=== PATIENT | female | born 1935 | race Two or more races ===

== ENCOUNTER 2023-09-16 05:56 | Inpatient (IN) | payer MEDICARE, MEDICAID ==
[~2023-09-16] VITALS: Ht 154.9 cm; Wt 81.9 kg
[2023-09-16 06:54] LABS: Eosinophils # (auto) 0.2 10 ^3/uL (0-0.8); Hemoglobin 13.5 g/dL (12.2-16.2); Lymphocytes # (auto) 2.3 10 ^3/uL (0.4-5.4); Neutrophils # (auto) 6.6 10 ^3/uL (1.6-8.6)
[2023-09-16 06:58] LABS: Basophils # (auto) 0.1 10 ^3/uL (0-0.2); Basophils % (auto) 0.6 % (0.0-2.0); Eosinophils % (auto) 2.5 % (0.0-7.0); Hematocrit 41.6 % (36.0-46.0); Lymphocytes % (auto) 23.6 % (10.0-50.0); Mean Corpuscular Hgb Conc. 32.5 g/dL (32.0-36.0); Mean Corpuscular Volume 83.2 fL (80.0-100.0); Monocytes # (auto) 0.5 10 ^3/uL (0-1.3); Monocytes % (auto) 5.6 % (0.0-12.0); Neutrophils % (auto) 67.7 % (37.0-80.0); Nucleated Red Blood Cells % 0.1 %; Red Cell Distribution Width 16.7 % (11.8-14.3); White Blood Cell 9.7 10^3/uL (4.4-10.8)
[2023-09-16 07:08] LABS: Alanine Aminotransferase 11 U/L (7-40); Albumin 3.9 g/dL (3.2-4.8); Alkaline Phosphatase 69 U/L (46-116); Anion Gap 5 (5-15); Aspartate Aminotransferase 9 U/L (13-40); BUN/Creatinine Ratio 27.5 (10.0-20.0); Bilirubin, Total 0.5 mg/dL (0.2-1.0); Blood Urea Nitrogen 22 mg/dL (9-23); Calcium 9.1 mg/dL (8.7-10.4); Carbon Dioxide 29 mmol/L (20-30); Chloride 106 mmol/L (98-107); Glucose 152 mg/dL (74-106); Potassium 4.3 mmol/L (3.5-5.1); Sodium 140 mmol/L (136-145); Total Protein 6.1 g/dL (5.7-8.2)
[2023-09-16 07:30] VITALS: PULSE 53; RESP 15; O2SAT 91
[2023-09-16 07:32] LABS: INR 1.14 (0.9-1.15); Partial Thromboplastin Time 33.5 SEC (24.5-34.5); Prothrombin Time 11.9 sec (9.3-11.8)
[2023-09-16] MEDS ORDERED: FUROSEMIDE 40 MG/4 ML VIAL IV ONE (10:30)
[2023-09-16] MEDS ORDERED: BENA40TA70 PO (11:00)
[2023-09-16] MEDS ORDERED: ALBUTEROL MEDNEB 2.5 mg/3ml NEB NEB PRN (11:00)
[2023-09-16] MEDS ORDERED: ASPI-628 PO (11:00)
[2023-09-16] MEDS ORDERED: MORPHINE SULFATE INJ 2 MG/ml SYRG IV PRN (11:00)
[2023-09-16] MEDS ORDERED: SIMV20TA20 PO (11:00)
[2023-09-16] MEDS ORDERED: CLOP75TA70 PO (11:00)
[2023-09-16] MEDS ORDERED: FOLI-119 PO (11:00)
[2023-09-16] MEDS ORDERED: GAB100C PO (11:00)
[2023-09-16] MEDS ORDERED: POTA-264 (11:00)
[2023-09-16] MEDS ORDERED: NITROGLYCERIN 0.4 MG SL TAB SL PRN (11:00)
[2023-09-16] MEDS ORDERED: FUR20T PO (11:00)
[2023-09-16] MEDS ORDERED: AMLO1TAB22 PO (11:00)
[2023-09-16] MEDS ORDERED: DEXTROSE (50%) 50ML SYRG IV PRN (11:00)
[2023-09-16 11:41] VITALS: BP 114/53; PULSE 60; RESP 20; TEMP 98.1
[2023-09-16 12:16] LABS: Triglycerides 97 mg/dL (< 150)
[2023-09-16 12:17] LABS: LDL Cholesterol 30 mg/dL (< 100)
[2023-09-16 12:18] LABS: Cholesterol 83 mg/dL (< 200); HDL Cholesterol 39 mg/dL (40-59)
[2023-09-16] MEDS: InsuLIN REG 1unit/0.01ml Soln (100units/ml) SC SCH ×3 (12:18→21:05)
[2023-09-16] MEDS: ACCU-CHEK COMFORT CURVE STRIP VI SCH ×3 (12:18→21:05)
[2023-09-16] MEDS ORDERED: ATROPINE SULF 1 MG/10ml SYR IV ONE (12:45)
[2023-09-16] MEDS ORDERED: ATROPINE SULF 1 MG/10ml SYR IV PRN (13:45)
[2023-09-16] MEDS ORDERED: IOHEXOL 350 MG/ML 100ML IJ ONE (14:28)
[2023-09-16] MEDS: GABAPENTIN 100 MG CAP PO SCH ×2 (16:17→21:04)
[2023-09-16 16:32] LABS: Urine Bacteria MANY /hpf (None Seen); Urine Blood Negative /uL (Negative); Urine Clarity Clear (Clear); Urine Color Yellow (Yellow); Urine Hyaline Cast MANY /lpf (0 - 2); Urine Mucus FEW (None Seen); Urine Protein, UAD 1+ (Negative); Urine Specific Gravity 1.024 (1.001-1.035); Urine Urobilinogen Normal (Negative); Urine WBC 1 /hpf (0 - 5); Urine pH 5.5 (5.0-8.0)
[2023-09-16 19:22] VITALS: PULSE 77; RESP 26; O2SAT 93
[2023-09-17 06:36] LABS: Alanine Aminotransferase < 9 U/L (7-40); Albumin 4.2 g/dL (3.2-4.8); Alkaline Phosphatase 69 U/L (46-116); Anion Gap 6 (5-15); Aspartate Aminotransferase 11 U/L (13-40); BUN/Creatinine Ratio 19.5 (10.0-20.0); Basophils # (auto) 0 10 ^3/uL (0-0.2); Basophils % (auto) 0.4 % (0.0-2.0); Bilirubin, Total 0.6 mg/dL (0.2-1.0); Blood Urea Nitrogen 15 mg/dL (9-23); Calcium 9.1 mg/dL (8.7-10.4); Carbon Dioxide 30 mmol/L (20-30); Chloride 106 mmol/L (98-107); Glucose 151 mg/dL (74-106); Hemoglobin 13.8 g/dL (12.2-16.2); Lymphocytes # (auto) 1.3 10 ^3/uL (0.4-5.4); Potassium 4.5 mmol/L (3.5-5.1); Sodium 142 mmol/L (136-145); Total Protein 6.8 g/dL (5.7-8.2)
[2023-09-17 06:40] LABS: Eosinophils # (auto) 0.2 10 ^3/uL (0-0.8); Eosinophils % (auto) 1.5 % (0.0-7.0); Lymphocytes % (auto) 12.2 % (10.0-50.0); Mean Corpuscular Hemoglobin 26.6 pg (28.0-32.0); Mean Corpuscular Hgb Conc. 32.2 g/dL (32.0-36.0); Mean Corpuscular Volume 82.6 fL (80.0-100.0); Monocytes # (auto) 0.7 10 ^3/uL (0-1.3); Monocytes % (auto) 6.6 % (0.0-12.0); Neutrophils # (auto) 8.2 10 ^3/uL (1.6-8.6); Neutrophils % (auto) 79.3 % (37.0-80.0); White Blood Cell 10.3 10^3/uL (4.4-10.8)
[2023-09-17] MEDS: ACCU-CHEK COMFORT CURVE STRIP VI SCH ×4 (07:01→22:00)
[2023-09-17] MEDS: GABAPENTIN 100 MG CAP PO SCH ×3 (07:03→23:25)
[2023-09-17] MEDS: InsuLIN REG 1unit/0.01ml Soln (100units/ml) SC SCH ×4 (07:04→22:00)
[2023-09-17] MEDS: DOPamine 1600MCG/ML D5W 250 ML IV SCH ×2 (08:38→13:00)
[2023-09-17 08:40] VITALS: PULSE 52; RESP 18; O2SAT 93
[2023-09-17] MEDS ORDERED: CLOPIDOGREL BISULFATE 75 MG TAB PO SCH (10:00)
[2023-09-17] MEDS ORDERED: amLODIPine BESYLATE 5 MG TAB PO SCH (10:00)
[2023-09-17] MEDS ORDERED: FUROSEMIDE 20 MG/2 ML VIAL IV SCH (10:00)
[2023-09-17] MEDS: ENOXAPARIN SOD 40 MG/0.4 ML SYRINGE SC SCH (10:00)
[2023-09-17] MEDS: ASPirin-EC 81 mg tab PO SCH (10:00)
[2023-09-17] MEDS: FOLIC ACID 1 MG TAB PO SCH (11:27)
[2023-09-17] MEDS ORDERED: ATROPINE SULF 1 MG/10ml SYR IV ONE (15:15)
[2023-09-17] MEDS ORDERED: FUROSEMIDE 40 MG/4 ML VIAL IV SCH (18:00)
[2023-09-17 19:29] VITALS: BP 127/49; PULSE 43; RESP 20; TEMP 98.6; O2SAT 95
[2023-09-17 20:00] VITALS: PULSE 44
[2023-09-17 22:00] VITALS: BP 150/57; PULSE 37; RESP 16; TEMP 97.3; O2SAT 94
[2023-09-17] MEDS: FUROSEMIDE 40 MG/4 ML VIAL IV SCH (23:22)
[2023-09-17] MEDS: LISINOPRIL 5 MG TAB PO SCH (23:23)
[2023-09-18] VITALS (9 sets, daily range): BP systolic 128–145; BP diastolic 42–61; PULSE 45–65; RESP 14–20; TEMP 97.3–98.1; O2SAT 93–100
[2023-09-18] MEDS: InsuLIN REG 1unit/0.01ml Soln (100units/ml) SC SCH ×3 (06:08→17:14)
[2023-09-18] MEDS: GABAPENTIN 100 MG CAP PO SCH ×3 (06:09→22:00)
[2023-09-18] MEDS: FUROSEMIDE 40 MG/4 ML VIAL IV SCH ×2 (06:09→18:00)
[2023-09-18] MEDS: ACETAMINOPHEN 325 MG TAB PO PRN ×2 (06:18→17:11)
[2023-09-18 06:30] LABS: Basophils # (auto) 0 10 ^3/uL (0-0.2); Basophils % (auto) 0.4 % (0.0-2.0); Eosinophils # (auto) 0.1 10 ^3/uL (0-0.8); Hematocrit 41.3 % (36.0-46.0); Hemoglobin 13.3 g/dL (12.2-16.2); Lymphocytes # (auto) 1.3 10 ^3/uL (0.4-5.4); Mean Corpuscular Hgb Conc. 32.2 g/dL (32.0-36.0); Monocytes # (auto) 0.5 10 ^3/uL (0-1.3); Monocytes % (auto) 6.4 % (0.0-12.0); Neutrophils # (auto) 6.4 10 ^3/uL (1.6-8.6); Neutrophils % (auto) 76.2 % (37.0-80.0); Red Blood Cells 4.91 10^6/uL (4.0-5.20); Red Cell Distribution Width 17.1 % (11.8-14.3); White Blood Cell 8.4 10^3/uL (4.4-10.8)
[2023-09-18 06:39] LABS: Anion Gap 7 (5-15); Carbon Dioxide 31 mmol/L (20-30); Chloride 104 mmol/L (98-107); Sodium 142 mmol/L (136-145)
[2023-09-18 06:40] LABS: Calcium 9.1 mg/dL (8.5-10.1)
[2023-09-18 06:45] LABS: BUN/Creatinine Ratio 16.4 (10.0-20.0); Blood Urea Nitrogen 12 mg/dL (9-23); Glucose 203 mg/dL (74-106)
[2023-09-18] MEDS: ACCU-CHEK COMFORT CURVE STRIP VI SCH ×3 (07:00→17:13)
[2023-09-18] MEDS ORDERED: LISINOPRIL 5 MG TAB PO SCH (10:00)
[2023-09-18] MEDS: ASPirin-EC 81 mg tab PO SCH (10:19)
[2023-09-18] MEDS: LISINOPRIL 5 MG TAB PO SCH (10:20)
[2023-09-18] MEDS: ENOXAPARIN SOD 40 MG/0.4 ML SYRINGE SC SCH (10:20)
[2023-09-18] MEDS: FOLIC ACID 1 MG TAB PO SCH (10:20)
[2023-09-18] MEDS: EMPAGLIFLOZIN 10 MG TAB PO SCH (10:43)
[2023-09-18] MEDS: DOPamine 1600MCG/ML D5W 250 ML IV SCH (13:00)
[2023-09-18] MEDS ORDERED: ATROPINE SULF 1 MG/10ml SYR IV ONE (14:30)
[2023-09-19] VITALS (10 sets, daily range): BP systolic 121–160; BP diastolic 43–81; PULSE 31–94; RESP 13–20; TEMP 97.6–98.4; O2SAT 92–95
[2023-09-19] MEDS: InsuLIN REG 1unit/0.01ml Soln (100units/ml) SC SCH ×5 (00:38→21:27)
[2023-09-19] MEDS: GABAPENTIN 100 MG CAP PO SCH ×3 (06:00→21:13)
[2023-09-19] MEDS: ACCU-CHEK COMFORT CURVE STRIP VI SCH ×5 (06:22→22:29)
[2023-09-19 06:25] LABS: Basophils # (auto) 0 10 ^3/uL (0-0.2); Eosinophils # (auto) 0.2 10 ^3/uL (0-0.8); Hematocrit 39.3 % (36.0-46.0); Hemoglobin 12.6 g/dL (12.2-16.2); Monocytes # (auto) 0.8 10 ^3/uL (0-1.3)
[2023-09-19 06:28] LABS: Basophils % (auto) 0.5 % (0.0-2.0); Eosinophils % (auto) 2.4 % (0.0-7.0); Lymphocytes # (auto) 1.8 10 ^3/uL (0.4-5.4); Lymphocytes % (auto) 17.6 % (10.0-50.0); Mean Corpuscular Hemoglobin 26.8 pg (28.0-32.0); Mean Corpuscular Hgb Conc. 32.1 g/dL (32.0-36.0); Mean Corpuscular Volume 83.3 fL (80.0-100.0); Monocytes % (auto) 7.8 % (0.0-12.0); Neutrophils # (auto) 7.2 10 ^3/uL (1.6-8.6); Neutrophils % (auto) 71.7 % (37.0-80.0); Red Blood Cells 4.72 10^6/uL (4.0-5.20); Red Cell Distribution Width 16.9 % (11.8-14.3); White Blood Cell 10.1 10^3/uL (4.4-10.8)
[2023-09-19 06:37] LABS: Albumin 3.7 g/dL (3.2-4.8); Alkaline Phosphatase 64 U/L (46-116); Anion Gap 2 (5-15); Aspartate Aminotransferase 11 U/L (13-40); BUN/Creatinine Ratio 19.8 (10.0-20.0); Bilirubin, Total 0.4 mg/dL (0.2-1.0); Blood Urea Nitrogen 18 mg/dL (9-23); Calcium 8.9 mg/dL (8.5-10.1); Carbon Dioxide 33 mmol/L (20-30); Chloride 106 mmol/L (98-107); Glucose 138 mg/dL (74-106); Sodium 141 mmol/L (136-145); Total Protein 6.1 g/dL (5.7-8.2)
[2023-09-19] MEDS: FUROSEMIDE 40 MG/4 ML VIAL IV SCH ×2 (06:48→18:26)
[2023-09-19 06:50] LABS: Alanine Aminotransferase < 9 U/L (7-40)
[2023-09-19] MEDS: EMPAGLIFLOZIN 10 MG TAB PO SCH (09:26)
[2023-09-19] MEDS: LISINOPRIL 5 MG TAB PO SCH (09:27)
[2023-09-19] MEDS: FOLIC ACID 1 MG TAB PO SCH (09:28)
[2023-09-19] MEDS: ENOXAPARIN SOD 40 MG/0.4 ML SYRINGE SC SCH (09:28)
[2023-09-19] MEDS: ASPirin-EC 81 mg tab PO SCH (09:28)
[2023-09-19] MEDS: DOPamine 1600MCG/ML D5W 250 ML IV SCH (13:00)
[2023-09-19] MEDS ORDERED: HEPARIN SODIUM (PORCINE) 5000 UNITS/ML 1ML VIAL ONE (13:04)
[2023-09-19] MEDS ORDERED: VERAPAMIL 2.5MG/ML INJ 2ML VIAL IV ONE (13:04)
[2023-09-19] MEDS ORDERED: fentaNYL CITRATE 100 MCG/2 ML VL ONE (13:04)
[2023-09-19] MEDS ORDERED: LIDOCAINE 2%HCL (LOCAL ANESTH.) INJ 20ML MDV ONE (13:05)
[2023-09-19] MEDS ORDERED: IODIXANOL 320MG/ML 100ML BTL IV ONE (13:05)
[2023-09-19] MEDS ORDERED: MIDAZOLAM HCL 2MG/2ML 2ml VIAL (1mg/ml) ONE (13:05)
[2023-09-19] MEDS ORDERED: ANGIOMAX 250 MG VIAL IV ONE (13:17)
[2023-09-19] MEDS: ACETAMINOPHEN 325 MG TAB PO PRN (21:14)
[2023-09-20] VITALS (7 sets, daily range): BP systolic 129–163; BP diastolic 44–68; PULSE 68–78; RESP 18–20; TEMP 97.8–98.5; O2SAT 91–96
[2023-09-20] MEDS: EMPAGLIFLOZIN 10 MG TAB PO SCH (05:27)
[2023-09-20] MEDS: GABAPENTIN 100 MG CAP PO SCH ×3 (05:28→21:05)
[2023-09-20] MEDS: FUROSEMIDE 40 MG/4 ML VIAL IV SCH (05:31)
[2023-09-20] MEDS: ACCU-CHEK COMFORT CURVE STRIP VI SCH ×4 (06:06→22:00)
[2023-09-20] MEDS: InsuLIN REG 1unit/0.01ml Soln (100units/ml) SC SCH ×4 (06:12→21:10)
[2023-09-20 06:52] LABS: Basophils # (auto) 0 10 ^3/uL (0-0.2); Basophils % (auto) 0.4 % (0.0-2.0); Eosinophils # (auto) 0.1 10 ^3/uL (0-0.8); Eosinophils % (auto) 1.1 % (0.0-7.0); Hematocrit 42.4 % (36.0-46.0); Hemoglobin 13.4 g/dL (12.2-16.2); Lymphocytes # (auto) 1.3 10 ^3/uL (0.4-5.4); Lymphocytes % (auto) 15.4 % (10.0-50.0); Mean Corpuscular Hemoglobin 26.7 pg (28.0-32.0); Mean Corpuscular Hgb Conc. 31.6 g/dL (32.0-36.0); Mean Corpuscular Volume 84.4 fL (80.0-100.0); Monocytes # (auto) 0.8 10 ^3/uL (0-1.3); Monocytes % (auto) 8.9 % (0.0-12.0); Neutrophils # (auto) 6.3 10 ^3/uL (1.6-8.6); Neutrophils % (auto) 74.2 % (37.0-80.0); Nucleated Red Blood Cells % 0.2 %; Red Blood Cells 5.02 10^6/uL (4.0-5.20); Red Cell Distribution Width 16.9 % (11.8-14.3); White Blood Cell 8.4 10^3/uL (4.4-10.8)
[2023-09-20 07:12] LABS: Anion Gap 10 (5-15); Calcium 9.3 mg/dL (8.7-10.4); Carbon Dioxide 31 mmol/L (20-30); Chloride 103 mmol/L (98-107); Potassium 3.6 mmol/L (3.5-5.1); Sodium 144 mmol/L (136-145)
[2023-09-20 07:18] LABS: BUN/Creatinine Ratio 24.1 (10.0-20.0); Blood Urea Nitrogen 20 mg/dL (9-23); Glucose 127 mg/dL (74-106)
[2023-09-20] MEDS: ASPirin-EC 81 mg tab PO SCH (11:11)
[2023-09-20] MEDS: FOLIC ACID 1 MG TAB PO SCH (11:11)
[2023-09-20] MEDS: LISINOPRIL 5 MG TAB PO SCH (11:15)
[2023-09-20] MEDS: ENOXAPARIN SOD 40 MG/0.4 ML SYRINGE SC SCH (11:16)
[2023-09-20] MEDS ORDERED: POTASSIUM EFFERVESENT TAB 25 MEQ PO ONE (11:45)
[2023-09-20] MEDS: BUMETANIDE 2.5mg/10ml (0.25 mg/ml) INJ IV SCH (18:20)
[2023-09-20] MEDS: ATORVASTATIN 20 MG TAB PO SCH (21:05)
[2023-09-21] VITALS (8 sets, daily range): BP systolic 127–150; BP diastolic 47–85; PULSE 68–78; RESP 18–20; TEMP 97.6–98.9; O2SAT 90–94
[2023-09-21 05:48] LABS: Anion Gap 8 (5-15); Carbon Dioxide 33 mmol/L (20-30); Chloride 103 mmol/L (98-107); Potassium 4.1 mmol/L (3.5-5.1); Sodium 144 mmol/L (136-145)
[2023-09-21 05:50] LABS: Calcium 9.1 mg/dL (8.7-10.4)
[2023-09-21] MEDS: BUMETANIDE 2.5mg/10ml (0.25 mg/ml) INJ IV SCH ×2 (05:50→18:23)
[2023-09-21] MEDS: GABAPENTIN 100 MG CAP PO SCH ×3 (05:51→22:35)
[2023-09-21 05:54] LABS: BUN/Creatinine Ratio 30.8 (10.0-20.0); Blood Urea Nitrogen 20 mg/dL (9-23); Glucose 140 mg/dL (74-106)
[2023-09-21] MEDS: InsuLIN REG 1unit/0.01ml Soln (100units/ml) SC SCH ×4 (06:14→22:42)
[2023-09-21] MEDS: ACCU-CHEK COMFORT CURVE STRIP VI SCH ×4 (06:31→22:37)
[2023-09-21] MEDS: EMPAGLIFLOZIN 10 MG TAB PO SCH (06:31)
[2023-09-21 07:20] LABS: Basophils # (auto) 0 10 ^3/uL (0-0.2); Eosinophils # (auto) 0.2 10 ^3/uL (0-0.8); Lymphocytes # (auto) 1.4 10 ^3/uL (0.4-5.4)
[2023-09-21 07:23] LABS: Basophils % (auto) 0.5 % (0.0-2.0); Eosinophils % (auto) 2.7 % (0.0-7.0); Hematocrit 41.3 % (36.0-46.0); Hemoglobin 13.2 g/dL (12.2-16.2); Lymphocytes % (auto) 19.3 % (10.0-50.0); Mean Corpuscular Hemoglobin 26.6 pg (28.0-32.0); Mean Corpuscular Hgb Conc. 31.9 g/dL (32.0-36.0); Mean Corpuscular Volume 83.3 fL (80.0-100.0); Monocytes # (auto) 0.6 10 ^3/uL (0-1.3); Monocytes % (auto) 7.9 % (0.0-12.0); Neutrophils % (auto) 69.6 % (37.0-80.0); Nucleated Red Blood Cells % 0.1 %; Red Blood Cells 4.96 10^6/uL (4.0-5.20); White Blood Cell 7.1 10^3/uL (4.4-10.8)
[2023-09-21] MEDS: ASPirin-EC 81 mg tab PO SCH (08:58)
[2023-09-21] MEDS: SACUBITRIL-VALSARTAN 24mg/26mg TAB PO SCH ×2 (08:58→22:35)
[2023-09-21] MEDS: FOLIC ACID 1 MG TAB PO SCH (08:58)
[2023-09-21] MEDS: ENOXAPARIN SOD 40 MG/0.4 ML SYRINGE SC SCH (08:59)
[2023-09-21 14:25] LABS: Base Excess 8.9 mmol/L (-2.0-2.0)
[2023-09-21] MEDS: ATORVASTATIN 20 MG TAB PO SCH (22:35)
[2023-09-22] VITALS (7 sets, daily range): BP systolic 123–155; BP diastolic 47–58; PULSE 68–76; RESP 16–20; TEMP 97.4–98.4; O2SAT 91–97
[2023-09-22] MEDS: BUMETANIDE 2.5mg/10ml (0.25 mg/ml) INJ IV SCH ×2 (06:33→17:46)
[2023-09-22] MEDS: GABAPENTIN 100 MG CAP PO SCH ×3 (06:33→21:55)
[2023-09-22] MEDS: ACCU-CHEK COMFORT CURVE STRIP VI SCH ×4 (06:33→21:56)
[2023-09-22] MEDS: EMPAGLIFLOZIN 10 MG TAB PO SCH (06:33)
[2023-09-22] MEDS: InsuLIN REG 1unit/0.01ml Soln (100units/ml) SC SCH ×4 (06:43→22:02)
[2023-09-22] MEDS: FOLIC ACID 1 MG TAB PO SCH (09:21)
[2023-09-22] MEDS: ENOXAPARIN SOD 40 MG/0.4 ML SYRINGE SC SCH (09:21)
[2023-09-22] MEDS: SACUBITRIL-VALSARTAN 24mg/26mg TAB PO SCH ×2 (09:21→21:54)
[2023-09-22] MEDS: ASPirin-EC 81 mg tab PO SCH (09:22)
[2023-09-22 11:25] LABS: Base Excess 6.9 mmol/L (-2.0-2.0)
[2023-09-22] MEDS: ACETAMINOPHEN 325 MG TAB PO PRN (20:08)
[2023-09-22] MEDS: ATORVASTATIN 20 MG TAB PO SCH (21:54)
[2023-09-23 05:00] VITALS: BP 131/46; PULSE 60; RESP 16; TEMP 97.5; O2SAT 92
[2023-09-23] MEDS: EMPAGLIFLOZIN 10 MG TAB PO SCH (06:43)
[2023-09-23] MEDS: GABAPENTIN 100 MG CAP PO SCH ×3 (06:44→22:10)
[2023-09-23] MEDS: InsuLIN REG 1unit/0.01ml Soln (100units/ml) SC SCH ×4 (06:48→22:18)
[2023-09-23] MEDS: BUMETANIDE 2.5mg/10ml (0.25 mg/ml) INJ IV SCH ×2 (06:50→17:38)
[2023-09-23 07:20] LABS: Chloride 101 mmol/L (98-107); Sodium 142 mmol/L (136-145)
[2023-09-23 07:21] LABS: Anion Gap 8 (5-15); Calcium 9.7 mg/dL (8.5-10.1); Carbon Dioxide 33 mmol/L (20-30)
[2023-09-23 07:26] LABS: Blood Urea Nitrogen 18 mg/dL (9-23); Glucose 169 mg/dL (74-106)
[2023-09-23] MEDS: ACCU-CHEK COMFORT CURVE STRIP VI SCH ×4 (07:45→22:14)
[2023-09-23 08:00] VITALS: BP 119/50; PULSE 70; PULSE 76; RESP 20; TEMP 98.4; O2SAT 95
[2023-09-23] MEDS: SACUBITRIL-VALSARTAN 24mg/26mg TAB PO SCH ×2 (09:17→22:14)
[2023-09-23] MEDS: FOLIC ACID 1 MG TAB PO SCH (09:17)
[2023-09-23] MEDS: ASPirin-EC 81 mg tab PO SCH (09:17)
[2023-09-23] MEDS: ENOXAPARIN SOD 40 MG/0.4 ML SYRINGE SC SCH (09:17)
[2023-09-23] MEDS ORDERED: cefTRIAXone 1GM/50ML D5W 50 ML IV ONE (12:00)
[2023-09-23 12:48] VITALS: BP 148/53; PULSE 69; RESP 22; TEMP 98.2; O2SAT 91
[2023-09-23 13:14] LABS: Urine Bacteria FEW /hpf (None Seen); Urine Blood 1+ /uL (Negative); Urine Budding Yeast FEW /hpf (None Seen); Urine Clarity HAZY (Clear); Urine Color Colorless (Yellow); Urine Mucus FEW (None Seen); Urine Protein, UAD 1+ (Negative); Urine Specific Gravity 1.026 (1.001-1.035); Urine Sperm PRESENT /hpf (None Seen); Urine Urobilinogen Normal (Negative); Urine WBC 115 /hpf (0 - 5); Urine WBC Clumps PRESENT /hpf (None Seen)
[2023-09-23 17:00] VITALS: BP 130/40; PULSE 62; RESP 22; TEMP 98.6; O2SAT 90
[2023-09-23 20:00] VITALS: PULSE 79
[2023-09-23 22:00] VITALS: BP 131/53; PULSE 74; RESP 19; TEMP 97.5; O2SAT 93
[2023-09-23] MEDS: ATORVASTATIN 20 MG TAB PO SCH (22:10)
[2023-09-24 05:00] VITALS: BP 129/61; PULSE 66; RESP 18; TEMP 98; O2SAT 90
[2023-09-24] MEDS: EMPAGLIFLOZIN 10 MG TAB PO SCH (06:19)
[2023-09-24] MEDS: GABAPENTIN 100 MG CAP PO SCH ×2 (06:19→15:17)
[2023-09-24] MEDS: ACCU-CHEK COMFORT CURVE STRIP VI SCH ×2 (06:21→11:45)
[2023-09-24] MEDS: BUMETANIDE 2.5mg/10ml (0.25 mg/ml) INJ IV SCH (06:26)
[2023-09-24] MEDS: InsuLIN REG 1unit/0.01ml Soln (100units/ml) SC SCH ×2 (06:34→11:53)
[2023-09-24 08:00] VITALS: PULSE 81
[2023-09-24 09:00] VITALS: BP 132/48; PULSE 58; RESP 16; TEMP 97.5; O2SAT 95
[2023-09-24] MEDS ORDERED: cefTRIAXone 1GM/50ML D5W 50 ML IV SCH (09:00)
[2023-09-24] MEDS: SACUBITRIL-VALSARTAN 24mg/26mg TAB PO SCH (09:15)
[2023-09-24] MEDS: FOLIC ACID 1 MG TAB PO SCH (09:15)
[2023-09-24] MEDS: ENOXAPARIN SOD 40 MG/0.4 ML SYRINGE SC SCH (09:15)
[2023-09-24] MEDS: ASPirin-EC 81 mg tab PO SCH (09:15)
[2023-09-24] MEDS ORDERED: CEPH250C PO (11:53)
[2023-09-24] MEDS ORDERED: EMPA1TAB PO (11:53)
[2023-09-24] MEDS ORDERED: FURO1TAB33 PO (11:53)
[2023-09-24] MEDS ORDERED: SACU1TAB PO (11:53)
[2023-09-24 12:06] LABS: Base Excess 7.9 mmol/L (-2.0-2.0)
[2023-09-24 13:00] VITALS: BP 152/68; PULSE 63; RESP 12; TEMP 98.3; O2SAT 92
[2023-09-24 17:14] VITALS: BP 139/65; PULSE 74; RESP 14; TEMP 97.5; O2SAT 95
== END 2023-09-24 18:15 | disposition home or self-care (01) | DRG 286 ==
LOC: EDBD 05:56 → ER 05:56 → TELE-WESTW 10:59 → TELE 10:59 → TELE-WESTW 09-17 18:52
PROVIDERS: ADMIT Internal Medicine; ATTEND Student in an Organized Health Care Education/Training Program
PROC: 4A023N7 Measurement of Cardiac Sampling and Pressure, Left Heart, Percutaneous Approach (ICD-10-PCS; principal; 2023-09-19)
PROC: B211YZZ Fluoroscopy of Multiple Coronary Arteries using Other Contrast (ICD-10-PCS; 2023-09-19)
PROC: B215YZZ Fluoroscopy of Left Heart using Other Contrast (ICD-10-PCS; 2023-09-19)
DX: I11.0 Hypertensive heart disease with heart failure (principal); I50.23 Acute on chronic systolic (congestive) heart failure; J96.01 Acute respiratory failure with hypoxia; N39.0 Urinary tract infection, site not specified; J91.8 Pleural effusion in other conditions classified elsewhere; I42.8 Other cardiomyopathies; R00.1 Bradycardia, unspecified; I25.5 Ischemic cardiomyopathy; I27.20 Pulmonary hypertension, unspecified; E66.01 Morbid (severe) obesity due to excess calories; E11.51 Type 2 diabetes mellitus with diabetic peripheral angiopathy without gangrene; E78.5 Hyperlipidemia, unspecified; R07.89 Other chest pain; Z68.35 Body mass index [BMI] 35.0-35.9, adult; Z79.899 Other long term (current) drug therapy; Z71.3 Dietary counseling and surveillance; Z79.4 Long term (current) use of insulin
CPT/HCPCS: 36415; 36600; 71045; 71275; 80048; 80053; 80061; 81001; 82805; 82962; 83036; 83735; 83880; 84443; 84484; 85025; 85379; 85610; 85730; 86850; 86900; 86901; 87086; 93005; 93306; 93458; 93970; 97110; 97116; 97163; 97530; 99152; G0378; J0696; J1815; J2250; Q9967